=== PATIENT | female | born 1985 | race Caucasian/White ===

== ENCOUNTER 2018-09-10 06:30 | Emergency (ER) | payer OTHER ==
[~2018-09-10] VITALS: Ht 157.5 cm; Wt 59.9 kg
[~2018-09-10 06:30] MED LIST: SYNTHROID125 MCG
[2018-09-10] MEDS ORDERED: IBUPROFEN800 MG PO (10:51)
== END 2018-09-10 11:02 | disposition home or self-care (01) ==
LOC: ER 06:30
DX: S92.422A Displaced fracture of distal phalanx of left great toe, initial encounter for closed fracture (principal); W23.0XXA Caught, crushed, jammed, or pinched between moving objects, initial encounter; Y93.89 Activity, other specified; Y92.89 Other specified places as the place of occurrence of the external cause; Y99.8 Other external cause status

== ENCOUNTER 2022-12-16 13:48 | Outpatient (CLI) | payer OTHER ==
[~2022-12-16 13:48] MED LIST changes: +IBUPROFEN800 MG PO
== END 2022-12-16 15:14 | disposition home or self-care (01) ==
LOC: PRENATAL 13:48
PROVIDERS: ATTEND Obstetrics & Gynecology Maternal & Fetal Medicine
DX: O36.80X0 Pregnancy with inconclusive fetal viability, not applicable or unspecified (principal); O99.280 Endocrine, nutritional and metabolic diseases complicating pregnancy, unspecified trimester; O09.519 Supervision of elderly primigravida, unspecified trimester; Z3A.12 12 weeks gestation of pregnancy

== ENCOUNTER 2023-02-17 13:09 | Outpatient (CLI) | payer OTHER | END 2023-02-17 14:42 | disposition home or self-care (01) | LOC: PRENATAL 13:09 | PROVIDERS: ATTEND Obstetrics & Gynecology Maternal & Fetal Medicine | DX: O35.3XX0 Maternal care for (suspected) damage to fetus from viral disease in mother, not applicable or unspecified (principal); O09.519 Supervision of elderly primigravida, unspecified trimester; O99.280 Endocrine, nutritional and metabolic diseases complicating pregnancy, unspecified trimester; O44.00 Complete placenta previa NOS or without hemorrhage, unspecified trimester; Z3A.20 20 weeks gestation of pregnancy ==